=== PATIENT | male | born 1945 | race Caucasian/White ===

== ENCOUNTER 2019-01-03 10:17 | Emergency (ER) | payer OTHER ==
[~2019-01-03] VITALS: Ht 185.4 cm; Wt 117.9 kg
[2019-01-03] MEDS ORDERED: PLAVIX 75 MG TA75 M1 PO (10:36)
[2019-01-03] MEDS ORDERED: LASIX 40 MG TAB40 M2 PO (10:36)
[2019-01-03] MEDS ORDERED: FENOFIBRATE160 MG (10:37)
[2019-01-03] MEDS ORDERED: NORVASC10 MG PO (10:37)
[2019-01-03] MEDS ORDERED: COZAAR100 MG PO (10:37)
[2019-01-03] MEDS ORDERED: METFORMIN HCL500 MG PO (10:38)
[2019-01-03] MEDS ORDERED: ATORVASTATIN CA40 MG PO (10:38)
[2019-01-03] MEDS ORDERED: COREG25 MG PO (10:38)
[2019-01-03] MEDS ORDERED: TRESIBA FL100 UNIT/1 (10:39)
[2019-01-03 10:59] LABS: HEMATOCRIT 42.3 % (42.0-52.0); HEMOGLOBIN 14.7 gm/dL (14.0-18.0); MCH 32.7 pg (26.0-34.0); MCHC 34.7 g/dL (28.0-37.0); MCV 94.1 fL (80.0-100.0); MPV 10.3 fl. (7.2-11.1); NUCLEATED RBCS 0 /100WBC; PLATELET COUNT* 230 thou/uL (150-400); WBC 9.5 thou/uL (4.0-11.0)
[2019-01-03 11:05] LABS: CALCIUM 10.8 mg/dL (8.5-10.1); CREATININE 1.4 mg/dL (0.6-1.3); POTASSIUM 3.4 mmol/L (3.5-5.1)
[2019-01-03 11:07] LABS: URINE BILIRUBIN NEGATIVE (Negative); URINE BLOOD NEGATIVE (Negative); URINE CLARITY CLEAR; URINE COLOR YELLOW; URINE GLUCOSE-RANDOM 3+ (Negative); URINE KETONES TRACE (Negative); URINE LEUKOCYTES-REFLEX NEGATIVE (Negative); URINE NITRITE-REFLEX NEGATIVE (Negative); URINE PROTEIN NEGATIVE (Negative); URINE UROBILINOGEN 0.2 E.U./dl (0.2-1.0)
[2019-01-03 11:09] LABS: TOTAL BILIRUBIN 0.5 mg/dL (<0.1-1.0); TOTAL PROTEIN 7.4 g/dL (6.4-8.2)
[2019-01-03 11:29] LABS: ABSOLUTE BASOPHILS 0.1 thou/uL (0.0-0.2); ABSOLUTE LYMPHOCYTES 2.6 thou/uL (0.8-5.3); ABSOLUTE MONOCYTES 0.1 thou/uL (0.0-1.2); ABSOLUTE NEUTROPHILS 6.7 thou/uL (1.6-8.1); ATYPICAL LYMPHS 8 %; METAMYELOCYTES 6 %
[2019-01-03 11:30] LABS: PLATELET ESTIMATE ADEQUATE
[2019-01-03 11:48] LABS: BE 1.3 mmol/L (-2 to +3); PCO2 33.9 mmHg (35.0-45.0); PO2 85.8 mmHg (75.0-100.0); pH 7.474 (7.340-7.450)
[2019-01-03 12:02] LABS: SGOT 8.4 U/L (15-37); SGPT 21.6 U/L (30-65)
[2019-01-03 13:51] LABS: CALCIUM 9.7 mg/dL (8.5-10.1); CREATININE 1.2 mg/dL (0.6-1.3); POTASSIUM 3.8 mmol/L (3.5-5.1)
[2019-01-03 14:53] VITALS: BP 119/77
== END 2019-01-03 14:54 | disposition home or self-care (01) ==
LOC: M.ERS 10:17
PROVIDERS: Nurse Practitioner Family
DX: E11.65 Type 2 diabetes mellitus with hyperglycemia (principal); Z79.4 Long term (current) use of insulin; Z85.51 Personal history of malignant neoplasm of bladder